=== PATIENT | male | born 1995 | race Two or more races ===

== ENCOUNTER 2021-07-12 01:00 | Emergency (ER) | payer MEDICAID ==
[~2021-07-12] VITALS: Ht 180.3 cm; Wt 106.0 kg
[2021-07-12 01:11] VITALS: BP 133/67
== END 2021-07-12 03:23 | disposition left against medical advice (07) ==
LOC: ER 01:00
DX: Z53.21 Procedure and treatment not carried out due to patient leaving prior to being seen by health care provider (principal)

== ENCOUNTER 2022-03-28 16:31 | Emergency (ER) | payer MEDICAID ==
[~2022-03-28] VITALS: Ht 177.8 cm; Wt 100.0 kg
[2022-03-28 16:32] VITALS: BP 146/96
[2022-03-28] MEDS ORDERED: LIDOCAINE HCL 1% 20ML VIAL (Pyxis) INJ INFIL ONE (17:15)
[2022-03-28] MEDS ORDERED: BO1 TP (19:44)
[2022-03-28] MEDS ORDERED: BACITRACIN 15GM TUBE TOP ONE (19:45)
== END 2022-03-28 20:06 | disposition home or self-care (01) ==
LOC: ER 16:31
DX: S61.012A Laceration without foreign body of left thumb without damage to nail, initial encounter (principal); W25.XXXA Contact with sharp glass, initial encounter; Y93.9 Activity, unspecified; Y92.9 Unspecified place or not applicable
CPT/HCPCS: 12002; 73130; 99283

== ENCOUNTER 2022-04-10 13:58 | Emergency (ER) | payer MEDICAID ==
[~2022-04-10] VITALS: Ht 180.3 cm; Wt 102.0 kg
[~2022-04-10 13:58] MED LIST: BO1 TP
[2022-04-10 14:14] VITALS: BP 108/72
== END 2022-04-10 17:11 | disposition left against medical advice (07) ==
LOC: ER 13:58
DX: Z53.21 Procedure and treatment not carried out due to patient leaving prior to being seen by health care provider (principal)

== ENCOUNTER 2022-04-11 14:07 | Emergency (ER) | payer MEDICAID ==
[~2022-04-11] VITALS: Ht 180.3 cm; Wt 102.0 kg
[2022-04-11 14:32] VITALS: BP 138/72
== END 2022-04-11 14:59 | disposition home or self-care (01) ==
LOC: ER 14:07
DX: Z48.00 Encounter for change or removal of nonsurgical wound dressing (principal)
CPT/HCPCS: 99281

== ENCOUNTER 2022-11-27 00:53 | Emergency (ER) | payer MEDICAID, OTHER ==
[~2022-11-27] VITALS: Ht 180.3 cm; Wt 118.0 kg
[2022-11-27] MEDS ORDERED: HYDROCODONE/ACETAMINOPHEN 10/325MG TABLET PO ONE (03:30)
[2022-11-27 03:58] VITALS: BP 128/78
== END 2022-11-27 06:18 | disposition home or self-care (01) ==
LOC: ER 00:53
DX: M25.561 Pain in right knee (principal); W18.2XXA Fall in (into) shower or empty bathtub, initial encounter; Y93.F1 Activity, caregiving, bathing; Y92.9 Unspecified place or not applicable
CPT/HCPCS: 73552; 73562; 99284; Z7610